=== PATIENT | male | born 1970 | race Caucasian/White ===

== ENCOUNTER 2018-06-29 06:21 | Day surgery (SDC) | payer OTHER, SELFPAY ==
[2018-06-21 11:51] VITALS: BMI 48.6
[2018-06-29] VITALS (11 sets, daily range): BP systolic 114–134; BP diastolic 61–74; PULSE 61–89; RESP 7–24; TEMP 36–37.2; O2SAT 91–97; BMI 47.1
[2018-06-29] MEDS: LACTATED RINGERS 1,000 ML 42 ML IV (07:00)
[2018-06-29] MEDS: MIDAZOLAM 2 MG/2 ML VIAL IV (07:53)
[2018-06-29] MEDS: fentaNYL 100 MCG/2 ML INJ IV (07:53)
[2018-06-29] MEDS: CEFAZOLIN 2 GM/100 ML FROZ.PIGGY IV (08:00)
--- NOTE | 2018-06-29 08:12 | SUR.PREOP ---
Block start time [0753] . Monitoring initiated and maintained throughout procedure. Oxygen and medications given per anesthesiologist instructions. Patient remained stable throughout procedure, no adverse reactions noted. Block end time [0805]. PT TAKEN DIRECTLY INTO THE OR AFTER COMPLETION OF THE BLOCK BY CIRCULATING RN. PT LEFT IN STABLE CONDITION, VSS. PT TALKING TO RN AND AT SIDE. VERBAL ORDER RECEIVED FROM DR. BOWERS FOR 2 GRAMS OF ANCEF FOR SURGICAL PROCEDURE. COMMUNICATED THIS WITH CIRCULATING RN.
--- NOTE | 2018-06-29 08:50 | SUR.OPER ---
Beach chair with Ulysses/Ana Luisa shoulder positioner. Lower body on padded OR bed. Head in foam padded head cradle, secured with straps. Non-operative arm secured <90 degrees abduction. Pillow under knees. Safety belt at thigh. Cloth tape over blanket over lower legs.
[2018-06-29] MEDS: BUPIVACAINE 0.5% W/ EPI (PF) VIAL 30 ML INJ (08:56)
[2018-06-29] MEDS: SODIUM CHLORIDE IRRIG SOLUTION 3,000 ML, EPINEPHrine 1 MG IRR (08:58)
--- NOTE | 2018-06-29 09:38 | PM.OP.1 ---
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 Anterior superior labral tear Post-op diagnosis: same Procedure & Clinicians Procedure: Right shoulder arthroscopic glenohumeral joint debridement as well as labral debridement and debridement of a type 1 slap tear. Arthroscopic subacromial decompression and distal clavicle excision. Blockage of the suprascapular nerve at the end of the case. Same procedure as scheduled: Yes Indications: Right shoulder impingement and AC joint arthritis with labral pathology unresponsive to conservative treatment. Surgeon: Ayaz Robertson Dairy Technologist: Shadia Castro Anesthesia Type: General and Peripheral nerve block Operative Notes Findings: Arthritic changes to the AC joint with inferior osteophytes. Mild tendinopathy to the rotator cuff but no significant tearing. Small tear involving the anterior superior aspect of the labrum but no significant slap tear or involvement of the bicipital anchor. No significant arthritic changes to the glenohumeral joint. No loose bodies. No Bankart tears. No biceps tears. Closure Type: primary Specimen(s): none sent Estimated Blood Loss (mL): 5 Blood products transfused: none Procedure in detail: On date of service, Patient was met in the holding area. The operative site was signed and witnessed by the OR staff. The surgeries once again discussed with the patient and any remaining questions they had were answered fully. Patient was taken back to the operating theater and placed on the operating table in a supine position. Great care was taken to ensure that all bony prominences were properly padded. Patient was then placed into the beach chair position. The head and neck were properly positioned and secured. A timeout was performed verifying patient's name, procedure, and the operative site. The upper extremity was then prepped and draped in the normal sterile fashion. Previously, the bony anatomy and portal sites were marked out as well as injected with Marcaine with epinephrine. An 11 blade was used to make an incision in the posterior aspect of the shoulder. The camera was placed, and a diagnostic shoulder scope was performed. Findings listed above. Next under direct visualization, a anterior portal was made. Shaver was brought in and a debridement of the glenohumeral joint as well as the labral tear and type 1 slap tear was performed. The articular surface of the rotator cuff was evaluated. No sign of any high-grade partial-thickness tearing. Next the camera was placed into the subacromial space. A lateral portal was obtained under direct visualization. A combination of the shaver and vapor wand, a debridement of the inflamed tissue as well as inflamed bursa was performed. The lateral gutter was also cleaned out. This gave us good visualization of the bursal aspect of the rotator cuff as well as the acromial arch. There was an obvious impingement lesion in the acromial arch. Next we turned our attention to the subacromial decompression. Next, a mechanical rasp was then used to do a subacromial decompression. This allowed us to convert the acromion to a type I acromial. This also allowed us to shave down the bony lesion in the acromial space. The rasp was placed into the lateral portal as well as the anterior portal in order to do a complete subacromial decompression. We next turned our attention to the distal clavicle. Using the shaver in the vapor wand we were able to clean out all the soft tissue around the distal clavicle as well as into the a.c. joint. This gave us good visualization of the arthritic changes to the distal clavicle as well as good of the a.c. joint allowing us to assess our distal clavicle excision. Of the inferior osteophytes coming off the distal clavicle. Using the mechanical rasp in the anterior portal, we were able to remove the inferior osteophytes as well as do a distal clavicle excision. The camera was then placed into the anterior portal which gave us a direct visualization of the a.c. joint allowing us to assess the distal clavicle excision. We then turned our attention to the rotator cuff tear. There was no signs of any bursal sided tears. The shoulder was then taken through range of motion and there was no sign of any additional impingement. Next, the suprascapular nerve was blocked. Patient's shoulder was then cleaned dried and dressed and patient was taken to the PACU in stable condition. Complications: none Condition: stable Disposition: PACU Plan for aftercare: Patient will follow our postoperative protocol for subacromial decompression with distal clavicle excision.
--- NOTE | 2018-06-29 09:51 | PM.PREOP ---
Pre-operative Note Interval Note Pre-op Check: Yes History & Physical Reviewed by Physician Changes: No
--- NOTE | 2018-06-29 10:08 | SUR.PHASEI ---
C/o it's hard to breath. Dr. Ortega aware and evalutated patient. O2 sats 96% Ra. Lungs decreased
[2018-06-29] MEDS: ONDANSETRON 4 MG/2 ML INJ IV (10:21)
--- NOTE | 2018-06-29 10:25 | SUR.PHASEI ---
pt c/o nausea, medicated. Still c/o dyspnea. Repositioned, o2 sats 98%ra, lungs clear, decreased.
--- NOTE | 2018-06-29 10:43 | SUR.PHASEI ---
Pt sat at bedside reports dyspnea improved. Nausea improved but still present.
[2018-06-29] MEDS: METOCLOPRAMIDE 10 MG/2 ML INJ IV (10:45)
[2018-06-29] MEDS: MORPHINE 10 MG/ML INJ 4 MG IV (11:08)
--- NOTE | 2018-06-29 11:12 | SUR.PHASEI ---
pt c/o mid chest pressure. Dr Ortega notified, morphine and ekg ordered. RT notified and ekg done. NSR per ekg. Morphine given. Crackers provided. VS stable.
--- NOTE | 2018-06-29 11:17 | SUR.PHASEI ---
Pt reported mid chest pain improved, rt shoulder pain is 1/10, and dyspnea improved.
--- NOTE | 2018-06-29 11:19 | SUR.PHASEI ---
Light blotchy erythema to lt forearm.
--- NOTE | 2018-06-29 12:42 | SUR.PHASEII ---
Dr heard notified regarding erythema and hives to lt forearm after receiving morphine. No new orders. Pt denied chest pain or nausea. Robby cdi. Erythema improved prior to discharge.
== END 2018-06-29 11:50 | disposition home or self-care (01) ==
PROVIDERS: Visit Provider Orthopaedic Surgery
PROC: (CPT 29805; principal; 2018-06-29 07:45)
DX: M75.41 Impingement syndrome of right shoulder (principal); S43.51XA Sprain of right acromioclavicular joint, initial encounter; S43.431A Superior glenoid labrum lesion of right shoulder, initial encounter; G47.33 Obstructive sleep apnea (adult) (pediatric); E66.9 Obesity, unspecified; Z68.34 Body mass index [BMI] 34.0-34.9, adult; E11.9 Type 2 diabetes mellitus without complications; I48.91 Unspecified atrial fibrillation; J45.909 Unspecified asthma, uncomplicated; Z87.891 Personal history of nicotine dependence; X50.0XXA Overexertion from strenuous movement or load, initial encounter; M19.011 Primary osteoarthritis, right shoulder; G89.18 Other acute postprocedural pain
CPT/HCPCS: 29823; 29826; 64450; 93005; 93010; J0171; J0690; J2250; J2270; J2405; J2704; J2765; J3010